=== PATIENT | male | born 1925 | race Caucasian/White ===

== ENCOUNTER → 2016-09-28 | Outpatient (CLI) | payer MEDICARE | LOC: LAB 10:45 | PROVIDERS: ATTEND Ophthalmology | DX: M31.6 Other giant cell arteritis (principal); Z86.711 Personal history of pulmonary embolism | CPT/HCPCS: 36415; 85610; 85652; 86140 ==

== ENCOUNTER → 2016-10-18 | Outpatient (CLI) | payer MEDICARE | LOC: LAB 10:45 | PROVIDERS: ATTEND Ophthalmology | DX: M31.6 Other giant cell arteritis (principal) | CPT/HCPCS: 36415; 85652; 86140 ==